=== PATIENT | male | born 1970 | race Asian ===

== ENCOUNTER 2023-08-12 18:55 | Emergency (ER) | payer BC, SELFPAY ==
[2023-08-12 18:58] VITALS: BP 143/90
--- NOTE | 2023-08-12 21:03 | ED.GENMED ---
History of Present Illness
General
Chief Complaint: Eye Problems
Source: patient
Time Seen by Provider: 08/12/23 20:58
Travel History
Have you had any contact with someone who has COVID-19?: No
Do you have any symptoms of coronavirus? Fever > 100 degrees, chills, cough, shortness of breath, sore throat, loss of taste or smell, muscle aches, or headache?: No
History of Present Illness
History of Present Illness:
53-year-old male with past medical history of hypothyroidism presenting to the emergency department after noticing redness to the right eye earlier today, believes the area is related to straining while having a bowel movement noting a chronic issue
with constipation. Patient states there is no visual disturbance or pain to the right eye. He intermittently wears contact lenses but most of the time is wearing glasses. He notes that he had not been wearing contact lenses prior to noticing the
redness. Patient has no other concerns at this time.
Past History
Past History
ED Past Medical History: Hypothyroidism
ED Past Surgical History: None
Social History
Tobacco: Non-smoker
Alcohol: None
Drug: None
Personal:
Living: with family
Employment: Employed
Review of Systems
Review of Systems
All Other Systems: ROS reviewed and negative except as documented in HPI and ROS
Phy Exam
Physical Exam
Physical Exam:
GENERAL: Alert , in no apparent distress
EYE: Small right-sided subconjunctival hemorrhage along the medial portion of the sclera, pupils 4 mm bilateral, PERRL, EOMI, no periorbital edema or erythema, no proptosis
Visual acuity: Right eye 20/25, left eye, 20/20, both eyes 20/20. Patient wearing glasses at time of evaluation
Head: Normocephalic atraumatic
NECK: Supple,
ENT: mmm.
LUNGS: no acute respiratory distress
NEUROLOGICAL: Alert and oriented
SKIN: Warm and dry, skin intact.
MUSCULOSKELETAL: well perfused.
PSYCH: Normal and appropriate interaction.
Scores
Heart Failure Risk
Heart Failure Risk Score: Not Applicable
Heart Score for Chest Pain Patients
STEMI patient?: Not applicable
Withdrawal Assessment of Alcohol
Withdrawal Assessment Completed?: Not applicable
Course
Vital Signs
Initial and Last Documented VS:
Initial Vital Signs
Temp Pulse Resp BP Pulse Ox
98.2 F 85 18 143/90 98
08/12/23 18:58 08/12/23 18:58 08/12/23 18:58 08/12/23 18:58 08/12/23 18:58
Last Documented Vital Signs
Temp Pulse Resp BP Pulse Ox
98.2 F 89 16 118/72 97
08/12/23 18:58 08/12/23 21:14 08/12/23 21:14 08/12/23 21:14 08/12/23 21:14
MDM/Problems Addressed
Differential Diagnosis Includes:
Subconjunctival hemorrhage, conjunctivitis, foreign body, corneal abrasion, glaucoma
MDM/Problems Addressed:
53-year-old male presenting the emergency department for evaluation of redness to the right following straining while having a bowel movement. Symptoms are more suggestive of a subconjunctival hemorrhage. Discussed management of subconjunctival
hemorrhage and patient and that overall there is no concern for any emergent pathologies. Patient was advised to follow-up with his primary care physician for his chronic issues with constipation and advised to not strain while having a bowel
movement. Patient is otherwise stable for discharge home.
*Pulse Oximetry
Patient hypoxic: no
*Critical Care Note
Total Time (30-74mins, 75-104mins- exclusive of procedures): Not Applicable
ED Attending Note
-
Portions of this chart may have been created with voice recognition software.� Occasional wrong word or��sound alike� substitutions may have occurred due to the inherent limitations of voice recognition software.
Discharge Plan
Departure
Patient Disposition: Home (Routine Discharge)
Date of Disposition: 08/12/23
Time of Disposition: 21:03
Patient with high blood pressure during this ER visit?: Yes
Discharge Problem:
Non-traumatic subconjunctival hemorrhage of right eye
Instructions: Subconjunctival Hemorrhage
Referrals:
UNKNOWN - PT DOES,NOT KNOW [Family Provider] -
Interventions
Interventions:
*Risk Screen - Suicide Last Done: 08/12/23 18:58
*General Assessment Last Done: 08/12/23 18:58
*Neglect/Abuse Screening Last Done: 08/12/23 18:58
ED- Fall Risk Assessment Last Done: 08/12/23 19:05
*ED COVID-19 Vaccine History Last Done: 08/12/23 18:58
*Nursing Disposition Last Done: 08/12/23 21:14
Discharge Date and Time
Discharge Date/Time: 08/12/23 21:16
[2023-08-12 21:14] VITALS: BP 118/72
== END 2023-08-12 21:16 | disposition home or self-care (01) ==
LOC: EMR 18:55
PROVIDERS: EMERGENCY PHYSICIAN Emergency Medicine
DX: H11.31 Conjunctival hemorrhage, right eye (principal); K59.00 Constipation, unspecified; R03.0 Elevated blood-pressure reading, without diagnosis of hypertension
CPT/HCPCS: 99282